=== PATIENT | female | born 1990 | race Caucasian/White ===

== ENCOUNTER 2021-06-07 07:13 | Day surgery (SDC) | payer OTHER ==
[2021-06-04 14:42] VITALS: BMI 23.3
[2021-06-07] MEDS ORDERED: ACETAMINOPHEN 325 MG TABLET (FP) PO PRN (08:50)
[2021-06-07] MEDS ORDERED: ONDANSETRON 4 MG/2 ML VIAL IVPUSH PRN (08:50)
[2021-06-07] MEDS ORDERED: oxyCODONE HCL 5 MG TABLET PO PRN (08:50)
[2021-06-07] MEDS ORDERED: LACTATED RINGERS SOLUTION 1,000 ML IV SCH (09:00)
[2021-06-07] MEDS ORDERED: MIDAZOLAM HCL 2 MG/2 ML SINGLE DOSE VIAL ONE (09:04)
[2021-06-07] MEDS ORDERED: PROPOFOL 20 ML ONE (09:04)
[2021-06-07] MEDS ORDERED: BUPIVACAINE HCL/PF 2.5 MG/ML - 30 ML VIAL IJ ONE (09:04)
[2021-06-07] MEDS ORDERED: ceFAZolin SODIUM 1 GM VIAL ONE (09:28)
[2021-06-07] MEDS ORDERED: DEXAMETHASONE SOD PHOSPHATE 4 MG/1 ML VIAL ONE (09:31)
[2021-06-07] MEDS ORDERED: ONDANSETRON 4 MG/2 ML VIAL ONE ×2 (09:31→11:22)
[2021-06-07] MEDS ORDERED: KETOROLAC TROMETHAMINE 30 MG/1 ML VIAL ONE (10:05)
[2021-06-07] MEDS ORDERED: oxyCODONE HCL 5 MG TABLET ONE (12:04)
[2021-06-07] MEDS ORDERED: ACETAMINOPHEN 325 MG TABLET (FP) ONE (12:04)
[2021-06-07 13:14] VITALS: TEMP 97.8
[2021-06-07 13:20] VITALS: BP 110/62; PULSE 66
== END 2021-06-07 12:50 | disposition home or self-care (01) ==
LOC: FASU 07:13
PROVIDERS: ATTEND Orthopaedic Surgery
PROC: 0SBC4ZZ Excision of Right Knee Joint, Percutaneous Endoscopic Approach (ICD-10-PCS; principal; 2021-06-07 09:42)
DX: S83.281A Other tear of lateral meniscus, current injury, right knee, initial encounter (principal); M67.461 Ganglion, right knee; M65.861 Other synovitis and tenosynovitis, right lower leg; X58.XXXA Exposure to other specified factors, initial encounter; Y93.9 Activity, unspecified; Y92.9 Unspecified place or not applicable
CPT/HCPCS: 84703; 88304-TC; 94760